=== PATIENT | female | born 1990 | race American Indian/Alaskan Native ===

== ENCOUNTER 2018-12-08 18:27 | Emergency (ER) | payer SELFPAY ==
[2018-12-08] MEDS ORDERED: KETOROLAC 30 MG/ML INJ ONE (20:44)
[2018-12-08] MEDS ORDERED: dexAMETHasone 10 MG/ML VIAL ONE (20:44)
[2018-12-08] MEDS ORDERED: METHOCARBAMOL 1,000 MG/10 ML VIAL IV ONE (20:44)
[2018-12-08] MEDS ORDERED: NA CHLORIDE 0.9% 100 ML IV ONE (20:44)
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
[2018-12-08] MEDS ORDERED: ONDANSETRON 4 MG/2 ML VIAL ONE (22:51)
[2018-12-08] MEDS ORDERED: MEPERIDINE HCL 50 MG/ML AMP ONE (22:51)
--- NOTE | 2018-12-09 08:07 | RAD REPORT ---
EXAM DESCRIPTION: RAD - Lumbar Spine 3 Views - 12/08/2018 10:10 pm CLINICAL HISTORY: Back pain FINDINGS: Urban rods extend from T12 -L4. The hardware appears intact. Mild compression fracture involves the L2 vertebral body which presumably is chronic in should be com pared to the prior history. No acute fracture or dislocation noted.
== END 2018-12-08 23:08 | disposition home or self-care (01) ==
LOC: ER 18:27
DX: M62.830 Muscle spasm of back (principal); V49.40XA Driver injured in collision with unspecified motor vehicles in traffic accident, initial encounter; F17.210 Nicotine dependence, cigarettes, uncomplicated
CPT/HCPCS: 72100; 96365; 96375; 99284; J1100; J2175; J2405; J2800